=== PATIENT | female | born 1955 | race Asian ===

== ENCOUNTER 2017-05-02 08:14 | Emergency (ER) | payer OTHER ==
[2017-05-02 08:20] VITALS: BP 120/78; PULSE 82; TEMP 97.9; BMI 21.9
--- NOTE | 2017-05-02 09:13 | PDOC ---
History of Present Illness - General Chief Complaint: Injury Stated Complaint: FALL/EMPLOYEE Time Seen by Provider: 05/02/17 08:22 History Source: Patient Exam Limitations: No Limitations - History of Present Illness Initial Comments: 05/02/17 09:08 CHIEF COMPLAINT: Accidental fall, left arm pain and bruise to the right knee. HISTORY OF PRESENT ILLNESS: Patient is a 61-year-old female, history of high cholesterol Lipitor employee [employer] presents for evaluation of loose to right knee and right shoulder pain. 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 Reports putting her arm out to brace her fall. PMH: [High cholesterol] MEDS:[ Lipitor] ALLERGIES: [None] REVIEW OF SYSTEMS: GENERAL/CONSTITUTIONAL: Awake alert and oriented HEAD, EYES, EARS, NOSE AND THROAT: No change in vision. No facial edema, no bruising. NO active bleeding. Nares intact. RESPIRATORY: No cough, wheezing, or hemoptysis. CARDIAC: Denies chest pain, no shortness of breathe. MUSCULOSKELETAL: No spinal point tenderness, Good ROM to all four extremities. NO CVA tenderness. [No] lateral neck pain. Pain reproduced to right shoulder with range of motion GI/: Denies abdominal pain, no nausea or vomiting, no bloody stool, no Hematuria. SKIN : No erythema noted. No abrasion or lacerations. Visible bruise noted superficially to right knee. NEUROLOGIC: No loss of consciousness, no numbness or tingling. PHYSICAL EXAM: GENERAL: Awake and alert and oriented x3. EYES: The pupils are equal, round, and reactive to light, with clear, conjunctiva. Good extraocular movement. No nystagmus NOSE: No nasal trauma . Midface stable MOUTH: Teeth intact. EARS: The ear canals and tympanic membranes are normal without trauma. No drainage. NECK: No Lower cervical C-spine tenderness, no pain with chin to chest. CHEST: The lungs are clear without crackles, or wheezes. No subcutaneous emphysema. No crepitus. HEART: Heart is regular rhythm, with normal S1 and S2, no murmurs. ABDOMEN: The abdomen is soft and nontender with normal bowel sounds. There is no guarding or rebound. MUSCULOSKELETAL: No spinal point tenderness. No bruising or erythema. Pelvis stable. RECTAL: Patient refused. EXTREMITIES: Extremities are normal. A bruise superficially noted to right knee with stability of knee, no fluid appreciated good range of motion. Right shoulder with good range of motion no visible deformity pain with abduction NEUROLOGICAL:Mental status: The patient is oriented x3. No Generalized headache , Romberg [-] Cranial nerves: Cranial nerves II through XII are intact Motor: The upper extremities are 5 over 5 in all muscle groups. The lower extremities are 5 over 5 in all muscle groups. Sensation: Sensation is intact to light touch throughout. Cerebellar: [id number] is normal in both upper extremities. Heel-knee- lujan is normal in both lower extremities. Reflexes: 2+ and symmetric in the upper and lower extremities. Gait: Normal. Heel and toe walking are normal. Tandem gait is normal. SKIN: Without edema, erythema. No abrasions or lacerations. There is a visible bruise noted to right knee Past History - Past Medical History Allergies/Adverse Reactions: Allergies Allergy/AdvReac Type Severity Reaction Status Date / Time No Known Drug Allergies Allergy Verified 05/02/17 08:20 Home Medications: Ambulatory Orders Aspirin [ASA -] 81 mg PO DAILY 11/09/14 Atorvastatin Ca [Lipitor] 10 mg PO DAILY 11/09/14 Methocarbamol [Robaxin -] 1,000 mg PO BID #12 tablet 12/08/14 Tapentadol Hydrochloride [Nucynta -] 50 mg PO Q6H PRN #60 tablet 12/15/14 Anemia: No Asthma: No Cancer: No Cardiac Disorders: No CVA: No COPD: No CHF: No Dementia: No Diabetes: No GI Disorders: No Disorders: No HTN: No Hypercholesterolemia: Yes Liver Disease: No Seizures: No Thyroid Disease: No - Surgical History Abdominal Surgery: No Appendectomy: No Cardiac Surgery: No Cholecystectomy: No Lung Surgery: No Neurologic Surgery: No Orthopedic Surgery: No - Immunization History Immunization Up to Date: Yes - Suicide/Smoking/Psychosocial Hx Smoking Status: No Smoking History: Never smoked Number of Cigarettes Smoked Daily: 0 Hx Alcohol Use: No Drug/Substance Use Hx: No Substance Use Type: None Hx Substance Use Treatment: No *Physical Exam - Vital Signs Last Vital Signs Temp Pulse Resp BP Pulse Ox 97.9 F 82 18 120/78 99 05/02/17 08:17 05/02/17 08:17 05/02/17 08:17 05/02/17 08:17 05/02/17 08:17 ED Treatment Course - RADIOLOGY Radiology Studies Ordered: Category Date Time Status SHOULDER-RIGHT [RAD] Stat Radiology 05/02/17 08:32 Completed Medical Decision Making - Medical Decision Making 05/02/17 09:12 A/P: Patient accidental fall while at work sustained bruise to right knee otherwise knee examination is benign patient ambulatory without any difficulty. Patient also complaining of right shoulder pain had to use right arm to brace for all strain to shoulder. There is no visible injury, no deformity. Will send patient to x-ray of right shoulder. Refusing Motrin at this time. 05/02/17 14:43 X-ray negative for acute fracture dislocation patient to follow-up with occupational medicine time off, Motrin for pain, follow-up with orthopedics in one week if pain persists *DC/Admit/Observation/Transfer Diagnosis at time of Disposition: Accidental fall Qualifiers: Encounter type: initial encounter Qualified Code(s): W19.XXXA - Unspecified fall, initial encounter Shoulder pain Qualifiers: Chronicity: acute Laterality: right Qualified Code(s): M25.511 - Pain in right shoulder Traumatic hematoma of knee Qualifiers: Encounter type: initial encounter Laterality: right Qualified Code(s): S80.01XA - Contusion of right knee, initial encounter - Discharge Dispostion Disposition: HOME Condition at time of disposition: Stable Admit: No - Referrals Referrals: Krys Fritz MD [Primary Care Provider] - - Patient Instructions Additional Instructions: 1. Please return to the emergency department with any redness, swelling, increased pain, or any other concerns. 2. Please follow up in the office of Dr. Nava within a week if pain persists. 3. No weightbearing 4. Ice and elevate when at rest. 5. Motrin for pain Please call occupational medicine to be cleared to return to work. - Post Discharge Activity Forms/Work/School Notes: Back to Work
== END 2017-05-02 09:41 | disposition home or self-care (01) ==
LOC: JERFT 08:14
DX: S80.01XA Contusion of right knee, initial encounter (principal); S49.81XA Other specified injuries of right shoulder and upper arm, initial encounter; W18.39XA Other fall on same level, initial encounter; Y93.F9 Activity, other caregiving; Y92.230 Patient room in hospital as the place of occurrence of the external cause; Y99.0 Civilian activity done for income or pay; E78.00 Pure hypercholesterolemia, unspecified
CPT/HCPCS: 73030-TC-RT; 99281-25